=== PATIENT | male | born 2000 | race Caucasian/White ===

== ENCOUNTER 2019-11-11 21:47 | Emergency (ER) | payer OTHER, MEDICAID ==
[~2019-11-11] VITALS: Ht 167.6 cm; Wt 59.0 kg
[2019-11-11] MEDS ORDERED: IBUPROFEN 600MG TABLET PO ONE (23:45)
[2019-11-12] MEDS ORDERED: BACITRACIN ZINC OINT UDPKT TOP ONE (01:00)
[2019-11-12 01:40] VITALS: BP 111/84
== END 2019-11-12 01:40 | disposition home or self-care (01) ==
LOC: ER 21:47
DX: R51 Headache (principal); M54.2 Cervicalgia; M25.562 Pain in left knee; V43.52XA Car driver injured in collision with other type car in traffic accident, initial encounter; Y93.89 Activity, other specified; Y92.488 Other paved roadways as the place of occurrence of the external cause
CPT/HCPCS: 72040; 73560; 99284